=== PATIENT | male | born 1990 | race Caucasian/White ===

== ENCOUNTER 2021-07-12 16:22 | Emergency (ER) | payer OTHER ==
[~2021-07-12] VITALS: Ht 180.3 cm; Wt 90.3 kg
--- NOTE | 2021-07-12 16:35 | NUR ---
Patient assisted from [facility] bed 12.
[2021-07-12] MEDS ORDERED: ONDANSETRON 4 MG/2 ML VIAL IVP ONE (16:40)
[2021-07-12] MEDS ORDERED: NACL 0.9% 1,000 ML IV ONE (16:40)
--- NOTE | 2021-07-12 17:10 | NUR ---
30 y/o M [place]F from outside a park for alcohol intoxication. Patient A&Ox4, ambulatory, states at approximately 1200 he drank one pint of gin and walked around the park and took "swigs of whiskey." Patient states he woke up feeling nauseated, and vomited x 2 episodes today prior to ER arrival. Patient at bedside awake and alert, stating "I feel dehydrated." Patient denies SOB, chest pain, headache, tremors, fever, chills, cold-like symptoms. Patient states history of heroin and opioid use. States stressors of being a dad that led him to "drink like this." Patient denies any meds prior to arrival. Bed locked in lowest position, side rails x 2, call light in reach. Pt in a gown. PMH/Sx/Meds: Hep C NKA
[2021-07-12 17:14] LABS: BASOPHILS # (AUTO) 0.1 K/uL (0.00-0.22); BASOPHILS % (AUTO) 0.9 % (0.0-2.0); EOSINOPHILS % (AUTO) 0.4 % (0.0-4.0); HEMATOCRIT 49.1 % (36-52); HEMOGLOBIN 16.8 g/dL (12.0-18.0); LYMPHOCYTES % (AUTO) 35.6 % (20.5-51.1); MEAN CORPUSCULAR HEMOGLOBIN 33 pg (27-31); MEAN CORPUSCULAR HGB CONC 34 g/dL (33-37); MEAN CORPUSCULAR VOLUME 96.4 fL (80-94); MONOCYTES # (AUTO) 0.2 K/uL (0.8-1.0); MONOCYTES % (AUTO) 4.2 % (1.7-9.3); NEUTROPHILS # (AUTO) 3.3 K/uL (1.8-7.7); NEUTROPHILS % (AUTO) 58.9 % (42.2-75.2); PLATELET COUNT (AUTO) 246 K/uL (140-450); RED BLOOD CELL COUNT(AUTO) 5.09 MIL/uL (4.20-6.10); RED CELL DISTRIBUTION WIDTH 12.8 % (11.6-13.7); WHITE BLOOD COUNT (AUTO) 5.5 K/uL (4.8-10.8)
[2021-07-12 17:37] LABS: ALBUMIN 4.9 g/dL (3.4-5.0); ANION GAP 18.8 (8-16); CARBON DIOXIDE 25.4 mmol/L (21-32); POTASSIUM 4.2 mmol/L (3.5-5.1); TOTAL BILIRUBIN 0.3 mg/dL (0.0-1.0)
[2021-07-12 17:59] VITALS: BP 136/86
--- NOTE | 2021-07-12 18:00 | NUR ---
Pt states + relief to pain, denies any nausea.
[2021-07-12] MEDS ORDERED: ONDA-24 PO (18:15)
== END 2021-07-12 18:20 | disposition home or self-care (01) ==
LOC: MED 16:22
DX: R11.2 Nausea with vomiting, unspecified (principal); Z72.89 Other problems related to lifestyle; Z79.899 Other long term (current) drug therapy
CPT/HCPCS: 36415; 80053; 83690; 85025; 96361; 96374; 99283; J2405; J7030